=== PATIENT | male | born 1965 | race Caucasian/White ===

== ENCOUNTER 2025-04-04 00:31 | Inpatient (IN) | payer OTHER, SELFPAY ==
[2025-04-04] VITALS (29 sets, daily range): BP systolic 109–223; BP diastolic 65–107; PULSE 89–131; RESP 14–33; TEMP 36.2–37.3; O2SAT 78–100; BMI 25.7; BMI 24.9
--- NOTE | 2025-04-04 00:39 | EKG12_ITS ---
Test Reason : SOB Blood Pressure : */* mmHG Vent. Rate : 106 BPM Atrial Rate : 106 BPM P-R Int : 154 ms QRS Dur : 86 ms QT Int : 336 ms P-R-T Axes : 88 82 72 degrees QTcB Int : 446 ms Sinus tachycardia Biatrial enlargement Abnormal ECG Confirmed by Sylvain Mcdonald ([id number]), commercial production editor SUSIE REED ([id number]) on 04/05/2025 10:29:32 AM Referred By: Confirmed By: Sylvain Mcdonald
--- NOTE | 2025-04-04 00:39 | RAD_ITS ---
PROCEDURE: CHEST 1 VIEW (PORTABLE) 04/03/2025 REASON FOR EXAM: DYSPNEA TECHNIQUE: Frontal view of the chest. COMPARISON: None available. FINDINGS: Hardware: None. Heart: Cardiac and mediastinal contours are stable. Lungs: The lungs are clear. No pneumothorax or pleural effusion. Bones: The bones are unremarkable. RAD/Chest 1 View (Portable) IMPRESSION: No Acute Findings. Reading Location: [facility]
--- NOTE | 2025-04-04 00:40 | EX.ED.DYSGE1 ---
HPI History of Present Illness Chief Complaint: Shortness of Breath Informant: patient Narrative Narrative: Patient is a 60-year-old male who reports no significant past medical history. He does state that he smokes but does not have a formal diagnosis of COPD or emphysema nor does he require supplemental oxygen at baseline. He states he went to bed feeling overall normal but awoke this morning with slight shortness of breath. He states as a day progressed his shortness of breath worsened and it seemed to spike this evening and secondary to the worsening symptoms he was brought in for evaluation [facility] Medical History no medical history no medical history Home Medications ?Medication ?Instructions ?Recorded ?Last Taken ?Type NK 04/04/25 Unknown History Allergy/AdvReac Type Severity Reaction Status Date / Time No Known Allergies Allergy Verified 04/04/25 00:34 Social History Smoking Status: Current every day smoker tobacco type: cigarettes ROS ROS ED Constitutional Constitutional ED: Denies chills or fever(s) Eyes Eyes: Denies change in vision ENT ENT ED: Denies rhinorrhea or sore throat Cardiovascular Cardiovascular: Reports racing heartbeat; Denies chest pain or palpitations Respiratory/Chest Respiratory/Chest: Reports cough and dyspnea Gastrointestinal Gastrointestinal: Denies abdominal pain, diarrhea, nausea or vomiting Musculoskeletal Musculoskeletal: Denies myalgias Integumentary Denies rash Neurologic Neurologic: Denies headache(s) Hematologic/Lymphatic Hematologic/Lymphatic: Denies easy bleeding or easy bruising Allergic/Immunologic Allergic/Immunologic ED: Denies mouth swelling or tongue swelling EXAM Physical Exam Const Vital Signs: 04/04/25 00:32 04/04/25 00:35 04/04/25 00:44 Temperature 97.2 F L 98.1 F Temperature Source Temporal Temporal Pulse Rate 108 H 109 H 127 H Respiratory Rate 23 H 26 H 25 H Respiratory Effort Respiratory Depth Respiratory Pattern Blood Pressure 223/103 H 223/103 H Blood Pressure Mean 143 143 Pulse Ox 78 95 Oxygen Delivery Method Room Air Nasal Cannula Oxygen Flow Rate (L/min) 3 Fraction of Inspired Oxygen (FIO2) 04/04/25 01:02 04/04/25 01:15 04/04/25 01:35 Temperature Temperature Source Pulse Rate 131 H 127 H 120 H Respiratory Rate 27 H 25 H 27 H Respiratory Effort Respiratory Depth Respiratory Pattern Blood Pressure 138/89 H 124/65 H Blood Pressure Mean 105 84 Pulse Ox 98 99 100 Oxygen Delivery Method Nasal Cannula Room Air Oxygen Flow Rate (L/min) 3 Fraction of Inspired Oxygen (FIO2) 35 04/04/25 01:35 04/04/25 01:48 04/04/25 02:00 Temperature 98.2 F 98.2 F Temperature Source Oral Oral Pulse Rate 117 H 112 H Respiratory Rate 27 H 33 H Respiratory Effort Short of Breath Respiratory Depth Deep Respiratory Pattern Tachypnea Blood Pressure 109/65 118/73 Blood Pressure Mean 79 88 Pulse Ox 100 100 Oxygen Delivery Method Room Air Bi-pap Nasal Cannula Oxygen Flow Rate (L/min) 4 Fraction of Inspired Oxygen (FIO2) 04/04/25 02:30 Temperature Temperature Source Pulse Rate 108 H Respiratory Rate 27 H Respiratory Effort Respiratory Depth Respiratory Pattern Blood Pressure Blood Pressure Mean Pulse Ox 100 Oxygen Delivery Method Oxygen Flow Rate (L/min) Fraction of Inspired Oxygen (FIO2) 30 Positive well nourished and well developed Constitutional Narrative: Patient is in moderate respiratory distress with tachypnea accessory muscle use and dyspnea with speech General Appearance ED: well developed; Negative for pallor HEENT HEENT Narrative: Normocephalic atraumatic No tongue or lip swelling no oral lesions no airway edema or compromise No secondary findings in the posterior pharynx to suggest infection Eyes PERRL and EOMs intact bilaterally General Eye ED: Negative for scleral icterus Neck supple and no JVD Chest Wall palpation of chest normal Resp Resp Narrative: Patient is in moderate respiratory distress with tachypnea and accessory muscle use and dyspnea with speech as he can only speak 1-2 word sentences His breath sounds are severely diminished throughout with diffuse inspiratory and expiratory wheezing Cardio regular rhythm Rate: tachycardic and other Other Details: Tachycardic rate with regular rhythm Radial and carotid pulses are equal and symmetric Extremity normal to inspection Extremity Narrative: No asymmetric edema no pitting edema negative Homans' sign bilaterally Neuro oriented x3, CN's II-XII intact bilaterally and no sensory deficits noted Sensorium / Orientation: alert Motor Exam: strength 5/5 throughout Psych mental status grossly normal Skin no rashes or lesions noted General Skin Exam: Negative for jaundice or pallor MDM MDM MDM Narrative Medical decision making narrative: Patient arrived to the ER with significant increased work of breathing/respiratory distress as he can only speak in 1-2 word sentences was breathing at an elevated rate with retractions and accessory muscle use. He stated that he went to bed Tuesday night feeling normal and then awoke Tuesday with shortness of breath sensation. Based on his physical exam and his history of smoking this is most likely a COPD exacerbation. In order to rule out pneumonia versus pneumothorax versus pleural effusion a chest x-ray was obtained. This revealed no acute findings. In order to assess for the cause of the exacerbation such as COVID influenza or RSV a viral swab was ordered. A D-dimer was also obtained as he is tachycardic and hypoxic and his pulse ox was 78% on room air in order to rule out potential pulmonary embolus although he has no risk factors for the. His D-dimer is slightly elevated at 0.86 so CTA was added. This revealed no sign of PE or dissection or missed pneumonia. The viral swab was positive for influenza A which would correlate with his worsening symptoms throughout the day that came on suddenly. He has responded well to the BiPAP as it has reduced his work of breathing and has kept his pulse ox at 98 to 100%. As the patient will most likely continue to have lung inflammation from the influenza and he does not have access to BiPAP or oxygen at home I do not feel it is safe for him to return home at this time. Therefore the case was discussed with the hospitalist who agrees to accept the patient to his service for continued care. History & Record Review Discussion w/independent historian: Patient and Friend Lab Data Attestation: I reviewed the patient's lab results. Labs: Laboratory Results - last 24 hr 04/04/25 00:50 WBC 6.6 RBC 4.71 Hgb 14.4 Hct 43.3 MCV 91.9 MCH 30.6 MCHC 33.3 RDW Std Deviation 45.4 H RDW Coeff of Ana M 13.3 Plt Count 177 MPV 10.1 Immature Gran % (Auto) 0.800 Neut % (Auto) 77.3 H Lymph % (Auto) 9.8 L [place] % (Auto) 11.0 H Eos % (Auto) 0.6 Baso % (Auto) 0.5 Absolute Neuts (auto) 5.1 Absolute Lymphs (auto) 0.65 L Nucleated RBC % 0 D-Dimer Quant (PE/DVT) 0.86 H* Sodium 137 Potassium 4.1 Chloride 98 Carbon Dioxide 25.4 Anion Gap 14 BUN 18 Creatinine 0.94 Estim Creat Clear Calc 85.21 Est GFR (MDRD) Non-Af 93 BUN/Creatinine Ratio 19.5 Glucose 108 H Calcium 9.0 Magnesium 1.9 NT pro BNP II 117 Radiography Diagnostic Testing: Clinical Impression(s) from Imaging Studies Chest X-Ray 04/04/25 00:39 IMPRESSION: No Acute Findings. Reading Location: [facility] Chest x-ray as interpreted by the emergency medicine physician reveals no acute infiltrate pneumothorax or pleural effusion Management Discussion w/another healthcare provider: Hospitalist Discharge Plan Dx/Rx/DC Orders Clinical Impression: Acute respiratory failure with hypoxia, Influenza A, Acute exacerbation of chronic obstructive pulmonary disease, Tobacco use Disposition Disposition: Acute Care Hospital [facility]
[2025-04-04] MEDS: Albuterol 2.5 MG/3 ML VIAL.NEB. INHALATION (00:46)
[2025-04-04 01:15] LABS: Hematocrit 43.3 % (40-54); Hemoglobin 14.4 g/dL (13.0-16.5); Immature Granulocytes Count 0.050 X10^3/uL (0.0-0.0); Mean Corp Hgb Conc 33.3 g/dL (32-36); Mean Corpuscular Volume 91.9 fL (80-94); Mean Platelet Vol. 10.1 fl (6.2-12.0); NRBC Flagged by Analyzer 0 % (0-5); Platelet Count 177 K/mm3 (150-450); RBC Distribution Width CV 13.3 % (11.6-14.6); RBC Distribution Width SD 45.4 fl (35.1-43.9); Red Blood Count 4.71 M/mm3 (4.6-6.2); White Blood Count 6.6 K/mm3 (4.4-11.0)
[2025-04-04 01:40] LABS: D-Dimer Quantitative (DVT/PE) 0.86 FEU/ug/m (0.27-0.49)
[2025-04-04 01:41] LABS: Anion Gap 14 (5-15); BUN 18 mg/dL (4-19); BUN/Creat Ratio 19.5 RATIO (10-20); Calcium,Total 9.0 mg/dL (7.6-11.0); Carbon Dioxide 25.4 mmol/L (21.0-32.0); Chloride 98 mmol/L (98-108); Estimated Creatinine Clearance 85.21 ml/min (50-250); Glucose 108 mg/dL (70-99); Magnesium 1.9 mg/dL (1.5-2.2); Potassium 4.1 mmol/L (3.3-5.1); Pro- Brain NATRIURETIC PEPTIDE 117 pg/mL (<=900)
--- NOTE | 2025-04-04 02:06 | ED.RN ---
Per stop sepsis charting d/t rule out COPD exacerbation.
--- NOTE | 2025-04-04 02:15 | CT_ITS ---
PROCEDURE: CTA CHEST W/WO CONTRAST 04/04/2025 REASON FOR EXAM: HYPOXIA WITH ELEVATED D-DIMER TECHNIQUE: Procedure Code: [id number] Modality: CT Procedure: CTA CHEST W/WO CONTRAST Multiplanar Sagittal and Coronal images were obtained. CONTRAST: isovue 370 VOLUME: 75 mL One or more dose reduction techniques were used (e.g., Automated exposure control, adjustment of the mA and/or kV according to patient size, use of iterative reconstruction technique). RADIATION DOSE SUMMARY: CTDI Vol 8.61 mGy DLP :291.94 mGycm COMPARISON: 04-Apr-2025 CR FINDINGS: No evidence of any filling defect in the main pulmonary trunk, bilateral main pulmonary arteries or to suggest acute or chronic pulmonary embolism. Inhomogenously opacified pulmonary segmental arteries and subsegmental arteries, possibly flow related artifacts. If high clinical suspicion for pulmonary embolism. Advise to repeat the study with proper pulmonary angiographic phase timing. Patent thoracic aorta showing mild intimal irregularities and calcified atheromatous plaques. No intraluminal hypodense thrombi, dissecting intimal flaps or significant aneurysmal dilatation. No obvious cardiac abnormalities detected. Bilateral pulmonary atelectatic bands. Bilateral upper lung lobes apical reticulations. No obvious pulmonary masses or consolidations. No pleural or pericardial sac collections. No pathologically enlarged lymph nodes are noted. Scanned osseous structures show no osseous destruction. Thoracic spondylosis. CT/CTA Chest W/WO Contrast IMPRESSION: No evidence of major acute pulmonary arterial thromboembolism. Inhomogenously opacified pulmonary segmental arteries and subsegmental arteries , possibly flow related artifacts. If high clinical suspicion for pulmonary embolism. Advise to repeat the study with proper pulmon annie angiographic phase timing. No obvious pulmonary masses or consolidations. Reading Location: [place] [id number]
--- NOTE | 2025-04-04 02:49 | PCM.HP.STD ---
HPI - General General Date of Admission: 04/04/25 HPI Narrative JEREMIAH APONTE, is a 60 M who presents to the hospital with increasing shortness of breath and cough. He says that he started coughing on Tuesday and then it progressively got worse overnight into Tuesday when he started feeling more significantly ill and short of breath. He denies any medical history though he does not see a doctor. Denies any history of COPD or intermittent episodes of shortness of breath but he does admit to smoking cigarettes. In the emergency room he was found to be positive for flu A as well as being hypoxic into the 70s. He had increasing respiratory distress and was placed on BiPAP and he is feeling better while being maintained on BiPAP. No leukocytosis and remains afebrile however he is tachycardic as well as tachypneic and with his shortness of breath D-dimer was obtained which was elevated therefore CTA was ordered, however we are having difficulty with communication of our EMR to that of the radiology service therefore will empirically treat with therapeutic Lovenox pending evaluation of his CTA by radiology. [facility] Medical History no medical history Home Medications ?Medication ?Instructions ?Recorded ?Last Taken ?Type NK 04/04/25 Unknown History Allergy/AdvReac Type Severity Reaction Status Date / Time No Known Allergies Allergy Verified 04/04/25 00:34 Family History (Updated 04/04/25 @ 02:[address] Bj Wade MD) Other Heart disease Social History Smoking Status: Current every day smoker tobacco type: cigarettes ROS Constitutional Constitutional: Denies chills, fatigue, fever(s) or malaise Eyes Eyes: Denies blurry vision ENT HEENT: Denies headache(s) or nasal discharge Cardiovascular Cardiovascular: Denies chest pain, dyspnea on exertion or syncope Respiratory/Chest Respiratory/Chest: Reports cough, shortness of breath at rest and shortness of breath with exertion Gastrointestinal Gastrointestinal: Denies constipation, diarrhea, nausea or vomiting Genitourinary Genitourinary: Denies dysuria Neurologic Neurologic: Denies focal weakness, numbness or tremor(s) Psychiatric Psychiatric: Denies anxiety or depression Patient's Goals Of Care . What would you like to achieve or improve as a result of your hospital stay?: breath better Vital Signs Vital Signs Vital Signs: 04/04/25 00:32 04/04/25 00:35 04/04/25 00:44 Temperature 97.2 F L 98.1 F Temperature Source Temporal Temporal Pulse Rate 108 H 109 H 127 H Respiratory Rate 23 H 26 H 25 H Respiratory Effort Respiratory Depth Respiratory Pattern Blood Pressure 223/103 H 223/103 H Blood Pressure Mean 143 143 Pulse Ox 78 95 Oxygen Delivery Method Room Air Nasal Cannula Oxygen Flow Rate (L/min) 3 Fraction of Inspired Oxygen (FIO2) 04/04/25 01:02 04/04/25 01:15 04/04/25 01:35 Temperature Temperature Source Pulse Rate 131 H 127 H 120 H Respiratory Rate 27 H 25 H 27 H Respiratory Effort Respiratory Depth Respiratory Pattern Blood Pressure 138/89 H 124/65 H Blood Pressure Mean 105 84 Pulse Ox 98 99 100 Oxygen Delivery Method Nasal Cannula Room Air Oxygen Flow Rate (L/min) 3 Fraction of Inspired Oxygen (FIO2) 35 04/04/25 01:35 04/04/25 01:48 04/04/25 02:00 Temperature 98.2 F 98.2 F Temperature Source Oral Oral Pulse Rate 117 H 112 H Respiratory Rate 27 H 33 H Respiratory Effort Short of Breath Respiratory Depth Deep Respiratory Pattern Tachypnea Blood Pressure 109/65 118/73 Blood Pressure Mean 79 88 Pulse Ox 100 100 Oxygen Delivery Method Room Air Bi-pap Nasal Cannula Oxygen Flow Rate (L/min) 4 Fraction of Inspired Oxygen (FIO2) 04/04/25 02:30 Temperature Temperature Source Pulse Rate 108 H Respiratory Rate 27 H Respiratory Effort Respiratory Depth Respiratory Pattern Blood Pressure Blood Pressure Mean Pulse Ox 100 Oxygen Delivery Method Oxygen Flow Rate (L/min) Fraction of Inspired Oxygen (FIO2) 30 Weight Weight: 179 lb 7.3 oz Body Mass Index (BMI) 25.7 Physical Exam Narrative General: Alert, Oriented x3, Cooperative, moderate respiratory distress HEENT: Atraumatic, PERRLA, EOMI, Normocephalic Oral: Moist Mucosa Neck: Supple, No JVD Lungs: Diminished, poor air movement, No rhonchi, No wheeze, No rales, tachypneic, increased work of breathing Cardiovascular: Tachycardic, Regular Rhythm, Normal S1, Normal S2, No murmurs Abdomen: Soft, Non Tender, Non-Distended, No Hepato-splenomegaly Extremities: No edema, Capillary Refill Less than 3 Seconds Skin: No rashes, No breakdown Musculoskeletal: No Tenderness to Palpation of Joints or Extremities Neurological: No focal neurological deficits, moves all extremities Psych/Mental Status: Normal Affect, Appropriate Results Lab / Micro Data 04/04/25 00:50 04/04/25 00:50 Labs: Laboratory Results - last 24 hr 04/04/25 00:50: WBC 6.6, RBC 4.71, Hgb 14.4, Hct 43.3, MCV 91.9, MCH 30.6, MCHC 33.3, RDW Std Deviation 45.4 H, RDW Coeff of Ana M 13.3, Plt Count 177, MPV 10.1, Immature Gran % (Auto) 0.800, Neut % (Auto) 77.3 H, Lymph % (Auto) 9.8 L, [place] % (Auto) 11.0 H, Eos % (Auto) 0.6, Baso % (Auto) 0.5, Absolute Neuts (auto) 5.1, Absolute Lymphs (auto) 0.65 L, Nucleated RBC % 0, D-Dimer Quant (PE/DVT) 0.86 H*, Sodium 137, Potassium 4.1, Chloride 98, Carbon Dioxide 25.4, Anion Gap 14, BUN 18, Creatinine 0.94, Estim Creat Clear Calc 85.21, Est GFR (MDRD) Non-Af 93, BUN/Creatinine Ratio 19.5, Glucose 108 H, Calcium 9.0, Magnesium 1.9, NT pro BNP II 117 Micro: Microbiology 04/04/25 00:55 Mucosa - Nose SARS-CoV-2, Influenza & RSV (PCR) - Final Influenzae A Imaging Radiology Impression Chest X-Ray 04/04/25 00:39 IMPRESSION: No Acute Findings. Reading Location: [facility] Assessment & Plan Assessment/Plan (1) Influenza A: (2) Acute respiratory failure with hypoxia: PLAN: Plan 1. Acute hypoxic respiratory failure secondary to acute influenza A and possible COPD exacerbation/tobacco abuse ? Will continue with Tamiflu given symptom onset ? Will continue with therapeutic Lovenox pending final read of the CTA, this is only being done because of the difficulty sending images between our EMR and the radiology service given the fact that he has an elevated D-dimer and could potentially have a PE ? Continue with steroids and DuoNebs especially given the poor air movement while on BiPAP ? Continue with BiPAP ? I did discuss with him CODE STATUS given his respiratory situation at the moment he is a DNR CCA no intubation and I verified that if his breathing were to get significantly worse and in order to survive he would need to be intubated he would prefer to not be intubated DVT: Therapeutic Lovenox 75 minutes was spent on direct patient care, including documentation as well as chart review and collaboration with colleagues Charges/Coding Visit Charges Inpatient E&M: 25992 Init Hosp L3
[2025-04-04] MEDS: 0.9% Normal Saline (1000mL) 1,000 ML 999 ML IV (03:17)
[2025-04-04] MEDS: 0.9% Saline Lock 10 ML Syringe IV ×4 (04:41→21:02)
[2025-04-04 04:48] LABS: Hematocrit 39.1 % (40-54); Hemoglobin 13.3 g/dL (13.0-16.5); Immature Granulocytes Count 0.040 X10^3/uL (0.0-0.0); Mean Corp Hgb Conc 34.0 g/dL (32-36); Mean Corpuscular Volume 90.7 fL (80-94); Mean Platelet Vol. 10.1 fl (6.2-12.0); NRBC Flagged by Analyzer 0 % (0-5); POSITIVE DIFFERENTIAL YES; Platelet Count 175 K/mm3 (150-450); RBC Distribution Width CV 13.3 % (11.6-14.6); RBC Distribution Width SD 44.9 fl (35.1-43.9); Red Blood Count 4.31 M/mm3 (4.6-6.2); White Blood Count 6.6 K/mm3 (4.4-11.0)
[2025-04-04 05:27] LABS: Anion Gap 13 (5-15); BUN 18 mg/dL (4-19); BUN/Creat Ratio 23.2 RATIO (10-20); Calcium,Total 8.3 mg/dL (7.6-11.0); Carbon Dioxide 22.8 mmol/L (21.0-32.0); Chloride 100 mmol/L (98-108); Estimated Creatinine Clearance 104.58 ml/min (50-250); Glucose 134 mg/dL (70-99); Potassium 4.1 mmol/L (3.3-5.1)
--- NOTE | 2025-04-04 07:44 | PCM.PN.HOSP ---
Subjective Subjective Patient is a 60-year-old gentleman who presented to the emergency department with shortness of breath workup did reveal presence of acute influenza A infection. Patient was also found to be in acute hypoxic respiratory failure placed on BiPAP admitted to the intensive care unit for further management Objective Data Objective Data Vital Signs: Vital Signs Temp Pulse Resp BP Pulse Ox O2 Del Method O2 Flow Rate 98.2 F 94 22 H 165/97 H 96 Nasal Cannula 3 04/04/25 04:00 04/04/25 06:44 04/04/25 06:44 04/04/25 04:16 04/04/25 06:44 04/04/25 06:44 04/04/25 06:44 FiO2 30 04/04/25 04:16 Oxygen Flow Rate (L/min) 3 Oxygen Delivery Method Nasal Cannula Weight: 81.1 kg Body Mass Index (BMI) 24.9 Intake & Output: Intake and Output for Last 24 Hours 04/02/25 04/03/25 04/04/25 23:59 23:59 23:59 Intake Total 1000 / 1000 Output Total 450 / 450 Balance 550 / 550 Lab / Micro Data 04/04/25 04:38 04/04/25 04:38 Labs: Laboratory Results - last 24 hr 04/04/25 00:50: WBC 6.6, RBC 4.71, Hgb 14.4, Hct 43.3, MCV 91.9, MCH 30.6, MCHC 33.3, RDW Std Deviation 45.4 H, RDW Coeff of Ana M 13.3, Plt Count 177, MPV 10.1, Immature Gran % (Auto) 0.800, Neut % (Auto) 77.3 H, Lymph % (Auto) 9.8 L, [place] % (Auto) 11.0 H, Eos % (Auto) 0.6, Baso % (Auto) 0.5, Absolute Neuts (auto) 5.1, Absolute Lymphs (auto) 0.65 L, Nucleated RBC % 0, D-Dimer Quant (PE/DVT) 0.86 H*, Sodium 137, Potassium 4.1, Chloride 98, Carbon Dioxide 25.4, Anion Gap 14, BUN 18, Creatinine 0.94, Estim Creat Clear Calc 85.21, Est GFR (MDRD) Non-Af 93, BUN/Creatinine Ratio 19.5, Glucose 108 H, Calcium 9.0, Magnesium 1.9, NT pro BNP II 117 04/04/25 04:38: WBC 6.6, RBC 4.31 L, Hgb 13.3, Hct 39.1 L, MCV 90.7, MCH 30.9, MCHC 34.0, RDW Std Deviation 44.9 H, RDW Coeff of Ana M 13.3, Plt Count 175, MPV 10.1, Immature Gran % (Auto) 0.600, Neut % (Auto) 93.9 H, Lymph % (Auto) 2.6 L, [place] % (Auto) 2.4, Eos % (Auto) 0.2, Baso % (Auto) 0.3, Absolute Neuts (auto) 6.2, Absolute Lymphs (auto) 0.17 L, Nucleated RBC % 0, Sodium 135, Potassium 4.1, Chloride 100, Carbon Dioxide 22.8, Anion Gap 13, BUN 18, Creatinine 0.79, Estim Creat Clear Calc 104.58, Est GFR (MDRD) Non-Af 101, BUN/Creatinine Ratio 23.2 H, Glucose 134 H, Calcium 8.3 Micro: Microbiology 04/04/25 00:55 Mucosa - Nose SARS-CoV-2, Influenza & RSV (PCR) - Final Influenzae A Radiography Diagnostic Testing: Radiology Impression Chest X-Ray 04/04/25 00:39 IMPRESSION: No Acute Findings. Reading Location: [facility] Chest CTA 04/04/25 02:15 IMPRESSION: No evidence of major acute pulmonary arterial thromboembolism. Inhomogenously opacified pulmonary segmental arteries and subsegmental arteries, possibly flow related artifacts. If high clinical suspicion for pulmonary embolism. Advise to repeat the study with proper pulmonary angiographic phase timing. No obvious pulmonary masses or consolidations. Reading Location: [place] [address] Patient's Goals Of Care - F/U Goal Hisotry Goal History: Patient's Goals of Care History What would you like to achieve breath better 04/04/25 02:56 or improve as a result of you Physical Exam Narrative GENERAL: Patient on BiPAP HEENT: Atraumatic; normocephalic EYES; Anicteric, Normal Conjunctiva NECK; supple, normal thyroid, RESPIRATORY: Diminished to auscultation CARDIOVASCULAR: Regular S1 S2, GI: soft, normoactive bowel sounds, : No Renal angle tenderness; EXTREMITIES: No edema, no clubbing, MUSCULOSKELETAL: no muscle wasting NEURO: Awake; no lateralizing signs. SKIN: No Rash PSYCH; Flat affect Assessment & Plan Assessment/Plan (1) Influenza A: (2) Acute respiratory failure with hypoxia: PLAN: Plan Patient is a 60-year-old gentleman who presented to the emergency department with shortness of breath workup did reveal presence of acute influenza A infection. Patient was also found to be in acute hypoxic respiratory failure placed on BiPAP admitted to the intensive care unit for further management 1. Acute hypoxic respiratory failure ? Secondary to combination of influenza A infection as well as COPD exacerbation. Admitted to a monitored bed placed on noninvasive ventilation BiPAP 2. Acute influenza A infection ? Patient started on Tamiflu 3. Acute COPD exacerbation Exacerbated by patient influenza A management bronchodilator treatment systemic steroid as well as antibiotic therapy?doxycycline 4. Tobacco dependence ? Counseled on cessation, offered nicotine patch for tobacco cravings 5. DVT prophylaxis ? On enoxaparin
--- NOTE | 2025-04-04 10:52 | NURSING ---
Pt off bipap
--- NOTE | 2025-04-04 11:40 | CASEMGMT ---
ALONDRA CERVANTES Assessment Face to Face with patient for initial transition planning/care coordination assessment. ALONDRA CERVANTES introduced self and role at [facility], pt voices understanding. Pt is A&Ox4 and is resting comfortably in bed and is calm. Pt's Dtr at the bedside. Care providers, pharmacy, and demographics verified. Admitting dx: RF, Flu A LACE Strata: 1 PCP: Matthew Otero Specialists: Denies Preferred Pharmacy: [facility] Insurance: [employer] Prescription Benefit: Yes LNOK: Agustin (Brother)Simona (Dtr) Living Arrangements: Pt lives alone in a single story home with 2 steps to enter ADLs/IADLs: Indep, 6-Click score is 24 Transportation: Self, Dtr DME: Crutches. Pt is currently requiring additional oxygen and may qualify for home oxygen use. A verbal list of local in-network DME companies were provided to the pt at this time. Pt prefers [facility] HHC/SNF: Denies hx or needs Smoking: Pt states that he smokes a pack of cigarettes a day and denies SW f/u or cessation resources. Pt states that he plans to quit on his own. Pt?s goal: Home Plan: Home, follow for new oxygen. Pt states that he feels safe returning home at the time of DC and denies the need for HH or OP Tx. Pt denies further questions or concerns. CM to follow. Francis Carrero RN, CM
[2025-04-05] VITALS (14 sets, daily range): BP systolic 123–178; BP diastolic 75–98; PULSE 80–97; RESP 14–21; TEMP 36.6–37.2; O2SAT 94–100; BMI 25.2
[2025-04-05] MEDS: 0.9% Saline Lock 10 ML Syringe IV (05:59)
[2025-04-05 06:33] LABS: Hematocrit 40.4 % (40-54); Hemoglobin 13.5 g/dL (13.0-16.5); Immature Granulocytes Count 0.070 X10^3/uL (0.0-0.0); Mean Corp Hgb Conc 33.4 g/dL (32-36); Mean Corpuscular Volume 92.0 fL (80-94); Mean Platelet Vol. 10.1 fl (6.2-12.0); NRBC Flagged by Analyzer 0 % (0-5); Platelet Count 198 K/mm3 (150-450); RBC Distribution Width CV 14.0 % (11.6-14.6); RBC Distribution Width SD 47.7 fl (35.1-43.9); Red Blood Count 4.39 M/mm3 (4.6-6.2); White Blood Count 15.9 K/mm3 (4.4-11.0)
--- NOTE | 2025-04-05 07:31 | PCM.PN.HOSP ---
Subjective Subjective Patient seen complains of right sided rib pain. Patient has been weaned off BiPAP and is currently on nasal cannula 3 L at rest. Plan is for patient to be transferred from the ICU to [facility] Objective Data Objective Data Vital Signs: Vital Signs Temp Pulse Resp BP Pulse Ox O2 Del Method O2 Flow Rate 97.8 F 93 19 H 159/89 H 96 Nasal Cannula 5 04/05/25 06:00 04/05/25 06:51 04/05/25 06:51 04/05/25 06:00 04/05/25 06:51 04/05/25 06:51 04/05/25 06:51 FiO2 30 04/05/25 05:55 Oxygen Flow Rate (L/min) 5 Oxygen Delivery Method Nasal Cannula Weight: 82 kg Body Mass Index (BMI) 25.2 Intake & Output: Intake and Output for Last 24 Hours 04/03/25 04/04/25 04/05/25 23:59 23:59 23:59 Intake Total 1999 / 1999 Output Total 450 / 450 Balance 1550 / 1550 Lab / Micro Data 04/05/25 06:20 04/05/25 06:20 Labs: Laboratory Results - last 24 hr 04/05/25 06:20: WBC 15.9 H, RBC 4.39 L, Hgb 13.5, Hct 40.4, MCV 92.0, MCH 30.8, MCHC 33.4, RDW Std Deviation 47.7 H, RDW Coeff of Ana M 14.0, Plt Count 198, MPV 10.1, Immature Gran % (Auto) 0.400, Neut % (Auto) 89.5 H, Lymph % (Auto) 4.1 L, [place] % (Auto) 5.9, Eos % (Auto) 0.0, Baso % (Auto) 0.1, Absolute Neuts (auto) 14.2 H, Absolute Lymphs (auto) 0.65 L, Nucleated RBC % 0 Micro: Microbiology 04/04/25 00:55 Mucosa - Nose SARS-CoV-2, Influenza & RSV (PCR) - Final Influenzae A Physical Exam Narrative GENERAL: Comfortable at rest HEENT: Atraumatic; normocephalic EYES; Anicteric, Normal Conjunctiva NECK; supple, normal thyroid, RESPIRATORY: Diminished to auscultation CARDIOVASCULAR: Regular S1 S2, GI: soft, normoactive bowel sounds, : No Renal angle tenderness; EXTREMITIES: No edema, no clubbing, MUSCULOSKELETAL: no muscle wasting NEURO: Awake; no lateralizing signs. SKIN: No Rash PSYCH; Flat affect Assessment & Plan Assessment/Plan (1) Influenza A: (2) Acute respiratory failure with hypoxia: PLAN: Plan Patient is a 60-year-old gentleman who presented to the emergency department with shortness of breath workup did reveal presence of acute influenza A infection. Patient was also found to be in acute hypoxic respiratory failure placed on BiPAP admitted to the intensive care unit for further management 1. Acute hypoxic respiratory failure ? Secondary to combination of influenza A infection as well as COPD exacerbation. Admitted to a monitored bed placed on noninvasive ventilation BiPAP ? 04/05/2025; patient has been weaned off BiPAP, currently on nasal cannula. Plan is to continue treatment of the underlying etiology?COPD and influenza 2. Acute influenza A infection ? Patient started on Tamiflu 3. Acute COPD exacerbation Exacerbated by patient influenza A management bronchodilator treatment systemic steroid as well as antibiotic therapy?doxycycline 4. Tobacco dependence ? Counseled on cessation, offered nicotine patch for tobacco cravings 5. DVT prophylaxis ? On enoxaparin 6. Hypophosphatemia ? Corrected per protocol repeat labs ordered in a.m. for follow-up 7. Hyperglycemia ? Secondary to concomitant use of steroid, will continue with Charges/Coding Visit Charges Inpatient E&M: 51980 Subs Hosp L2
[2025-04-05 07:38] LABS: Anion Gap 11 (5-15); BUN 24 mg/dL (4-19); BUN/Creat Ratio 31.8 RATIO (10-20); Calcium,Total 9.1 mg/dL (7.6-11.0); Carbon Dioxide 23.3 mmol/L (21.0-32.0); Chloride 105 mmol/L (98-108); Estimated Creatinine Clearance 110.16 ml/min (50-250); Glucose 138 mg/dL (70-99); Magnesium 2.2 mg/dL (1.5-2.2); Potassium 4.7 mmol/L (3.3-5.1)
[2025-04-05] MEDS: Na Biphos/Potassium Phosphate PACKET 1 PACKET PO ×2 (08:56→21:59)
[2025-04-06] VITALS (10 sets, daily range): BP systolic 145–190; BP diastolic 83–107; PULSE 71–96; RESP 17–24; TEMP 36.6–36.8; O2SAT 93–96; BMI 24.7
[2025-04-06 05:56] LABS: Hematocrit 40.3 % (40-54); Hemoglobin 13.3 g/dL (13.0-16.5); Immature Granulocytes Count 0.090 X10^3/uL (0.0-0.0); Mean Corp Hgb Conc 33.0 g/dL (32-36); Mean Corpuscular Volume 92.4 fL (80-94); Mean Platelet Vol. 10.2 fl (6.2-12.0); NRBC Flagged by Analyzer 0 % (0-5); Platelet Count 219 K/mm3 (150-450); RBC Distribution Width CV 13.8 % (11.6-14.6); RBC Distribution Width SD 47.5 fl (35.1-43.9); Red Blood Count 4.36 M/mm3 (4.6-6.2); White Blood Count 16.1 K/mm3 (4.4-11.0)
[2025-04-06 06:25] LABS: Anion Gap 10 (5-15); BUN 19 mg/dL (4-19); BUN/Creat Ratio 29.0 RATIO (10-20); Calcium,Total 9.2 mg/dL (7.6-11.0); Carbon Dioxide 26.9 mmol/L (21.0-32.0); Chloride 104 mmol/L (98-108); Estimated Creatinine Clearance 123.31 ml/min (50-250); Glucose 120 mg/dL (70-99); Potassium 4.3 mmol/L (3.3-5.1)
[2025-04-06] MEDS: 0.9% Saline Lock 10 ML Syringe IV (06:51)
--- NOTE | 2025-04-06 07:36 | PCM.PN.HOSP ---
Subjective Subjective Patient seen. Currently being weaned off oxygen. Patient blood pressure control has remained labile. Plan is for patient to be assessed for discharge Objective Data Objective Data Vital Signs: Vital Signs Temp Pulse Resp BP Pulse Ox O2 Del Method O2 Flow Rate 97.8 F 86 24 H 176/97 H 96 Room Air 2 04/06/25 05:59 04/06/25 05:59 04/06/25 05:59 04/06/25 05:59 04/06/25 05:59 04/06/25 05:59 04/06/25 03:17 FiO2 30 04/05/25 05:55 Oxygen Flow Rate (L/min) 2 Oxygen Delivery Method Room Air Weight: 80.1 kg Body Mass Index (BMI) 24.7 Intake & Output: Intake and Output for Last 24 Hours 04/04/25 04/05/25 04/06/25 23:59 23:59 23:59 Intake Total 2000 / 1999 300 / 300 Output Total 450 / 450 Balance 1550 / 1550 300 / 300 Lab / Micro Data 04/06/25 05:33 04/06/25 05:33 Labs: Laboratory Results - last 24 hr 04/05/25 06:20: Sodium 139, Potassium 4.7, Chloride 105, Carbon Dioxide 23.3, Anion Gap 11, BUN 24 H, Creatinine 0.75, Estim Creat Clear Calc 110.16, Est GFR (MDRD) Non-Af 103, BUN/Creatinine Ratio 31.8 H, Glucose 138 H, Calcium 9.1, Phosphorus 2.5 L, Magnesium 2.2 04/06/25 05:33: WBC 16.1 H, RBC 4.36 L, Hgb 13.3, Hct 40.3, MCV 92.4, MCH 30.5, MCHC 33.0, RDW Std Deviation 47.5 H, RDW Coeff of Ana M 13.8, Plt Count 219, MPV 10.2, Immature Gran % (Auto) 0.600, Neut % (Auto) 90.2 H, Lymph % (Auto) 4.2 L, [place] % (Auto) 4.9, Eos % (Auto) 0.0, Baso % (Auto) 0.1, Absolute Neuts (auto) 14.5 H, Absolute Lymphs (auto) 0.68 L, Nucleated RBC % 0, Sodium 141, Potassium 4.3, Chloride 104, Carbon Dioxide 26.9, Anion Gap 10, BUN 19, Creatinine 0.67 L, Estim Creat Clear Calc 123.31, Est GFR (MDRD) Non-Af 106, BUN/Creatinine Ratio 29.0 H, Glucose 120 H, Calcium 9.2 Micro: Microbiology 04/04/25 00:55 Mucosa - Nose SARS-CoV-2, Influenza & RSV (PCR) - Final Influenzae A Physical Exam Narrative GENERAL: Comfortable at rest HEENT: Atraumatic; normocephalic EYES; Anicteric, Normal Conjunctiva NECK; supple, normal thyroid, RESPIRATORY: Diminished to auscultation CARDIOVASCULAR: Regular S1 S2, GI: soft, normoactive bowel sounds, : No Renal angle tenderness; EXTREMITIES: No edema, no clubbing, MUSCULOSKELETAL: no muscle wasting NEURO: Awake; no lateralizing signs. SKIN: No Rash PSYCH; Flat affect Assessment & Plan Assessment/Plan (1) Influenza A: (2) Acute respiratory failure with hypoxia: PLAN: Plan Patient is a 60-year-old gentleman who presented to the emergency department with shortness of breath workup did reveal presence of acute influenza A infection. Patient was also found to be in acute hypoxic respiratory failure placed on BiPAP admitted to the intensive care unit for further management 1. Acute hypoxic respiratory failure ? Secondary to combination of influenza A infection as well as COPD exacerbation. Admitted to a monitored bed placed on noninvasive ventilation BiPAP ? 04/05/2025; patient has been weaned off BiPAP, currently on nasal cannula. Plan is to continue treatment of the underlying etiology?COPD and influenza ? 04/06/2025; patient has been weaned off oxygen and plan is for patient to be assessed for discharge 2. Acute influenza A infection ? Patient started on Tamiflu 3. Acute COPD exacerbation Exacerbated by patient influenza A management bronchodilator treatment systemic steroid as well as antibiotic therapy?doxycycline 4. Tobacco dependence ? Counseled on cessation, offered nicotine patch for tobacco cravings 5. DVT prophylaxis ? On enoxaparin 6. Hypophosphatemia ? Corrected per protocol repeat labs ordered in a.m. for follow-up 7. Hyperglycemia ? Secondary to concomitant use of steroid, will continue with current treatment 8. Elevated blood pressure ? Patient is not a known hypertensive however blood pressure during her hospital stay have remained persistently patient was discharged on antihypertensives
--- NOTE | 2025-04-06 09:41 | DS.PCM_ITS ---
Providers Date of Admission: 04/04/25 Date of Discharge: 04/06/25 Primary Care Physician: Dr. Matthew Otero, DO Reason For Visit: RESP FAILURE, FLU A Diagnosis Discharge Diagnosis (1) Influenza A: Status: Acute Code(s): J10.1 - Influenza due to other identified influenza virus with other respiratory manifestations (2) Acute respiratory failure with hypoxia: Status: Acute Code(s): J96.01 - Acute respiratory failure with hypoxia Plan Patient is a 60-year-old gentleman who presented to the emergency department with shortness of breath workup did reveal presence of acute influenza A infection. Patient was also found to be in acute hypoxic respiratory failure placed on BiPAP admitted to the intensive care unit for further management 1. Acute hypoxic respiratory failure ? Secondary to combination of influenza A infection as well as COPD exacerbation. Admitted to a monitored bed placed on noninvasive ventilation BiPAP ? 04/05/2025; patient has been weaned off BiPAP, currently on nasal cannula. Plan is to continue treatment of the underlying etiology?COPD and influenza ? 04/06/2025; patient has been weaned off oxygen and plan is for patient to be assessed for discharge 2. Acute influenza A infection ? Patient started on Tamiflu 3. Acute COPD exacerbation Exacerbated by patient influenza A management bronchodilator treatment systemic steroid as well as antibiotic therapy?doxycycline 4. Tobacco dependence ? Counseled on cessation, offered nicotine patch for tobacco cravings 5. DVT prophylaxis ? On enoxaparin 6. Hypophosphatemia ? Corrected per protocol repeat labs ordered in a.m. for follow-up 7. Hyperglycemia ? Secondary to concomitant use of steroid, will continue with current treatment 8. Elevated blood pressure ? Patient is not a known hypertensive however blood pressure during her hospital stay have remained persistently patient was discharged on antihypertensives Medications at Discharge Home Medications albuterol sulfate 90 mcg/actuation aerosol inhaler 2 puff inhalation Q6H PRN shortness of breath or wheezing #8.5 grams 04/06/25 amlodipine 10 mg tablet 10 mg PO DAILY #60 tabs 04/06/25 calcium carbonate 500 mg (2.5 x 200 mg calcium (500 mg)) PO Q4H PRN PRN Heartburn Or Indigestion #30 tabs 04/06/25 doxycycline monohydrate 100 mg capsule 100 mg PO BID #14 caps 04/06/25 guaifenesin 600 mg tablet, extended release 12 hr (Mucinex) 1,200 mg (2 x 600 mg) PO BID #30 tabs 04/06/25 oseltamivir 75 mg capsule 75 mg PO BID #10 caps 04/06/25 potassium, sodium phosphates 280 mg-160 mg-250 mg oral powder packet 1 packet PO BID #100 ea 04/06/25 prednisone 20 mg tablet 20 mg PO BID #14 tabs 04/06/25 Hospital Course Summary of Care Provided Minutes Spent on Discharge: 35 Physical Exam Narrative GENERAL: Comfortable at rest HEENT: Atraumatic; normocephalic EYES; Anicteric, Normal Conjunctiva NECK; supple, normal thyroid, RESPIRATORY: Diminished to auscultation CARDIOVASCULAR: Regular S1 S2, GI: soft, normoactive bowel sounds, : No Renal angle tenderness; EXTREMITIES: No edema, no clubbing, MUSCULOSKELETAL: no muscle wasting NEURO: Awake; no lateralizing signs. SKIN: No Rash PSYCH; Flat affect Weight / BMI Weight Weight: 80.1 kg Body Mass Index (BMI) 24.7 ABG / Lab / Microbiology Data 04/06/25 05:33 04/06/25 05:33 Laboratory: Laboratory Results - last 24 hr 04/06/25 05:33: WBC 16.1 H, RBC 4.36 L, Hgb 13.3, Hct 40.3, MCV 92.4, MCH 30.5, MCHC 33.0, RDW Std Deviation 47.5 H, RDW Coeff of Ana M 13.8, Plt Count 219, MPV 10.2, Immature Gran % (Auto) 0.600, Neut % (Auto) 90.2 H, Lymph % (Auto) 4.2 L, [place] % (Auto) 4.9, Eos % (Auto) 0.0, Baso % (Auto) 0.1, Absolute Neuts (auto) 14.5 H, Absolute Lymphs (auto) 0.68 L, Nucleated RBC % 0, Sodium 141, Potassium 4.3, Chloride 104, Carbon Dioxide 26.9, Anion Gap 10, BUN 19, Creatinine 0.67 L, Estim Creat Clear Calc 123.31, Est GFR (MDRD) Non-Af 106, BUN/Creatinine Ratio 29.0 H, Glucose 120 H, Calcium 9.2 Microbiology: Microbiology 04/04/25 00:55 Mucosa - Nose SARS-CoV-2, Influenza & RSV (PCR) - Final Influenzae A D/C Instructions DC O2, CPAP, BIPAP Needs Home O2 Discharge instructions: No Patient's Goals Of Care - F/U Goals Reviewed Goals of care reviewed with patient: Yes - No change Meaningful Use Info Meaningful Use Meaningful Use Diagnoses (Choose all that apply): None applicable Discharge Plan Admission Admit Date/Time: 04/04/25 02:43 Attending Provider: John Avendaño Primary Care Provider: Matthew Otero Consulting Providers: Bj Wade Discharge Orders/Prescriptions Prescriptions: New amlodipine 10 mg Tablet 10 mg PO DAILY Qty: 60 0RF doxycycline monohydrate 100 mg Capsule 100 mg PO BID Qty: 14 0RF calcium carbonate 200 mg calcium (500 mg) Tablet,Chewable 500 mg PO Q4H PRN PRN (Reason: Heartburn Or Indigestion) Qty: 30 0RF potassium, sodium phosphates 280-160-250 mg Powder In Packet 1 packet PO BID Qty: 100 0RF oseltamivir 75 mg Capsule 75 mg PO BID Qty: 10 0RF albuterol sulfate 90 mcg/actuation HFA aerosol inhaler 2 puff inhalation Q6H PRN (Reason: shortness of breath or wheezing) Qty: 8.5 0RF prednisone 20 mg tablet 20 mg PO BID Qty: 14 0RF guaifenesin [Mucinex] 600 mg tablet extended release 12hr 1,200 mg PO BID Qty: 30 0RF Referrals / Follow Up: Matthew Otero DO [Primary Care Provider, Internal Medicine] - Within 1 Week Disposition Disposition (needs filled in before D/C Order can be placed): Home, Self Care Charges/Coding Visit Charges Inpatient E&M: 96595 Disch Hosp >30min
[2025-04-06] MEDS: Na Biphos/Potassium Phosphate PACKET 1 PACKET PO (10:35)
== END 2025-04-06 12:00 | disposition home or self-care (01) | DRG 189 ==
LOC: ED 02:09 → ICU 02:43 → MS3 04-05 16:32
PROVIDERS: Admitting Provider Family Medicine; Emergency Provider Emergency Medicine; PCP Family Medicine; Visit Provider Internal Medicine
DX: J96.01 Acute respiratory failure with hypoxia (principal); J44.1 Chronic obstructive pulmonary disease with (acute) exacerbation; E83.39 Other disorders of phosphorus metabolism; Z66 Do not resuscitate; J10.1 Influenza due to other identified influenza virus with other respiratory manifestations; F17.210 Nicotine dependence, cigarettes, uncomplicated; R03.0 Elevated blood-pressure reading, without diagnosis of hypertension; R73.9 Hyperglycemia, unspecified
CPT/HCPCS: 36415; 71045; 71275; 80048; 83735; 83880; 84100; 85025; 85379; 87631; 93005; 94002; 94003; 94640; 94762; 99284; Q9967; A4216